=== PATIENT | male | born 1950 | race Caucasian/White ===

== ENCOUNTER 2017-10-10 21:18 | Observation (INO) | payer MEDICARE ==
--- NOTE | 2017-10-10 22:26 | ED ---
General Adult HPI - General Chief complaint: Urogenital Stated complaint: Blood in Urine Time Seen by Provider: 10/10/17 21:52 Source: patient Mode of arrival: ambulatory Limitations: no limitations - History of Present Illness Initial comments: Patient is a 67 year old male who presents with a CC of hematuria. this has been going on for 4 days. patient cannot identify any inciting incidences. There are no aggravating or alleviating factors. patient denies pain, though he states that he passed a clot and has been having some frequency and irritation since that time. he denies any previous history of the same, no history of renal stones or flank pain. - Related Data Previous Rx's Medication Instructions Recorded Cetirizine HCl [Zyrtec] 10 mg PO DAILY #20 tab 01/18/14 EPINEPHrine (Auto Inject) [Epipen] 0.3 mg IM ONCE PRN #1 syringe 01/18/14 Famotidine [Pepcid] 20 mg PO BID #30 tablet 01/18/14 predniSONE 50 mg PO DAILY #5 tab 01/18/14 Allergies Allergy/AdvReac Type Severity Reaction Status Date / Time hydrocodone bitartrate Allergy Rash/Hives Verified 10/10/17 21:42 [From [place]] venom-honey bee Allergy Rash/Hives Verified 10/10/17 21:42 [bee venom (honey bee)] Review of Systems ROS Statement: Those systems with pertinent positive or pertinent negative responses have been documented in the HPI. ROS Other: All systems not noted in ROS Statement are negative. Genitourinary: Reports: hematuria Past Medical History Past Medical History: No Reported History History of Any Multi-Drug Resistant Organisms: None Reported Past Surgical History: Joint Replacement Additional Past Surgical History / Comment(s): Right knee, TRIPPLE BIPASS. Past Psychological History: No Psychological Hx Reported Smoking Status: Never smoker Past Alcohol Use History: Occasional Past Drug Use History: None Reported General Exam Limitations: no limitations General appearance: alert, in no apparent distress Head exam: Present: atraumatic, normocephalic Eye exam: Present: normal appearance ENT exam: Present: normal exam, mucous membranes moist Neck exam: Present: normal inspection Respiratory exam: Present: normal lung sounds bilaterally. Absent: respiratory distress, wheezes Cardiovascular Exam: Present: regular rate, normal rhythm GI/Abdominal exam: Present: soft. Absent: distended, tenderness Rectal exam: Present: deferred Extremities exam: Present: normal inspection Back exam: Present: normal inspection. Absent: CVA tenderness (R), CVA tenderness (L) Neurological exam: Present: alert, oriented X3, normal gait Psychiatric exam: Present: normal affect, normal mood Skin exam: Present: warm, dry, intact Course Vital Signs 10/10/17 10/10/17 21:39 22:39 Temperature 99.1 F 98.9 F Pulse Rate 80 71 Respiratory 16 18 Rate Blood Pressure 129/73 138/79 O2 Sat by Pulse 96 94 L Oximetry Medical Decision Making - Medical Decision Making patient presents with a CC of hematuria. on initial evaluation, patient in no acute distress, vital signs are stable. patient will be evaluated with basic labs, urinalysis, and US of the kidneys and bladder. 12:11 AM Lab evaluation of this patient shows leukocytosis of 32,000, and mildly decreased platelets. Labs are otherwise unremarkable. Ultrasound of the kidneys and bladder showed normal anatomy of the kidneys, there is some dependent debris in the bladder likely consistent with blood or clots. There is a mass in the posterior wall of the bladder is perhaps consistent with a neoplasm given patient's presentation. I discussed these results with the patient. The patient disclosed to me that he has CLL which would account for the patient's leukocytosis, however given the findings of the bladder and the suspicion for neoplasm, the patient will be sent for computed tomography scan of the abdomen and pelvis with contrast and admitted for expedited consult to urology. Care plan was discussed with the patient and his , they are agreeable. - Lab Data Result diagrams: 10/10/17 22:35 10/10/17 22:35 Lab Results 10/10/17 10/10/17 10/10/17 Range/Units 22:00 22:35 22:35 WBC 32.8 H* (3.8-10.6) k/uL RBC 4.69 (4.30-5.90) m/uL Hgb 14.3 (13.0-17.5) gm/dL Hct 42.0 (39.0-53.0) % MCV 89.6 (80.0-100.0) fL MCH 30.4 (25.0-35.0) pg MCHC 34.0 (31.0-37.0) g/dL RDW 13.6 (11.5-15.5) % Plt Count 131 L (150-450) k/uL Neutrophils % (Manual) 9 % Lymphocytes % (Manual) 91 % Neutrophils # (Manual) 2.95 (1.3-7.7) k/uL Lymphocytes # (Manual) 29.85 H (1.0-4.8) k/uL Nucleated RBCs 0 (0-0) /100 WBC Differential Comment Manual Slide Review Performed Sodium 143 (137-145) mmol/L Potassium 4.0 (3.5-5.1) mmol/L Chloride 107 (98-107) mmol/L Carbon Dioxide 22 (22-30) mmol/L Anion Gap 14 mmol/L BUN 23 H (9-20) mg/dL Creatinine 0.90 (0.66-1.25) mg/dL Est GFR (CKD-EPI)AfAm >90 (>60 ml/min/1.73 sqM) Est GFR (CKD-EPI)NonAf 87 (>60 ml/min/1.73 sqM) Glucose 103 H (74-99) mg/dL Calcium 9.8 (8.4-10.2) mg/dL Urine Color Red Urine Appearance Cloudy (Clear) Urine pH 5.5 (5.0-8.0) Ur Specific [place] 1.011 (1.001-1.035) Urine Protein 1+ H (Negative) Urine Glucose (UA) Negative (Negative) Urine Ketones Negative (Negative) Urine Blood Large H (Negative) Urine Nitrite Negative (Negative) Urine Bilirubin Negative (Negative) Urine Urobilinogen <2.0 (<2.0) mg/dL Ur Leukocyte Esterase Small H (Negative) Urine RBC >182 H (0-5) /hpf Urine WBC 33 H (0-5) /hpf Ur Squamous Epith Cells 1 (0-4) /hpf Urine Mucus Rare H (None) /hpf Disposition Clinical Impression: Painless hematuria, Bladder mass, CLL (chronic lymphocytic leukemia), Lymphocytosis Disposition: ADMITTED IP TO THIS [facility] Condition: Good Is patient prescribed a controlled substance at d/c from ED?: No Referrals: Nonstaff,Physician [Primary Care Provider] - 1-2 days Decision to Admit Reason: Admit from EC - Out of Hospital Transfer - Req. Specs Out of Hospital Transfer - Requested Specifics: Other Non-Acute
[2017-10-10 22:37] LABS: Appearance,Urine Cloudy (Clear); Bilirubin,Urine Negative (Negative); Blood,Urine Large (Negative); Color,Urine Red; Glucose,Urine (UA) Negative (Negative); Ketones,Urine Negative (Negative); Leukocyte Esterase,Urine Small (Negative); Mucus,Urine Rare /hpf; Nitrite,Urine Negative (Negative); PH, Urine 5.5 (5.0-8.0); Protein,Urine 1+ (Negative); RBC,Urine >182 /hpf (0-5); Specific Gravity,Urine 1.011 (1.001-1.035); Squamous Epithelial Cell,Urine 1 /hpf (0-4); Urobilinogen,Urine <2.0 mg/dL (<2.0); WBC,Urine 33 /hpf (0-5)
[2017-10-10 22:53] LABS: HGB 14.3 gm/dL (13.0-17.5); MCH 30.4 pg (25.0-35.0); MCV 89.6 fL (80.0-100.0); Mean Platelet Volume 7.5; Platelet Count 131 k/uL (150-450); RBC 4.69 m/uL (4.30-5.90); RDW 13.6 % (11.5-15.5)
[2017-10-10 23:01] LABS: Anion Gap 14 mmol/L; Blood Urea Nitrogen 23 mg/dL (9-20); Calcium 9.8 mg/dL (8.4-10.2); Carbon Dioxide 22 mmol/L (22-30); Chloride 107 mmol/L (98-107); Glucose 103 mg/dL (74-99); Sodium 143 mmol/L (137-145); WBC 32.8 k/uL (3.8-10.6)
--- NOTE | 2017-10-10 23:23 | US ---
EXAMINATION TYPE: US kidneys/renal and bladder DATE OF EXAM: 10/10/2017 COMPARISON: NONE CLINICAL HISTORY: Pain. Gross hematuria for 4 days EXAM MEASUREMENTS: Right Kidney: 11.3 x 4.9 x 5.0 cm Left Kidney: 11.4 x 6.2 x 5.4 cm Right Kidney: no evidence of hydronephrosis Left Kidney: no evidence of hydronephrosis Bladder: possible septation noted and hyperechoic area posterior wall = 1.4 x 0.9 x 1.0cm Bilateral Jets seen: yes There is no evidence for hydronephrosis at this point in time. No nephrolithiasis is seen. No dasha s are identified. The urinary bladder is anechoic. Bilateral ureteral jets are seen. IMPRESSION: The kidneys appear normal. There is an oval-shaped echogenic area that measures 14 x 9 mm in the depe ndent urinary bladder that is probably a blood clot or debris. No evidence of renal mass or obstructi on. There is linear density along the posterior urinary bladder near the posterior wall that has appearan ce of septa and could relate to neoplastic process or blood clot.
[2017-10-10 23:47] LABS: Lymphocytes # (M) 29.85 k/uL (1.0-4.8); Neutrophils # (M) 2.95 k/uL (1.3-7.7); Neutrophils % (M) 9 %; Nucleated Red Blood Cells 0 /100 WBC (0-0); Total Cells Counted 100
[2017-10-10] MEDS ORDERED: RX INFO: IV CONTRAST WAS GIVEN 1 EACH MISC MISCELLANE PRN (23:47)
[2017-10-11] MEDS ORDERED: NALOXONE 0.4 MG/ML 1 ML VIAL IV PRN (00:07)
--- NOTE | 2017-10-11 00:44 | CT ---
EXAMINATION TYPE: CT abdomen pelvis w con DATE OF EXAM: 10/11/2017 COMPARISON: NONE HISTORY: Patient presents with hematuria. CT DLP: 1550.6 mGycm Automated exposure control for dose reduction was used. TECHNIQUE: Helical acquisition of images was performed from the lung bases through the pelvis. CONTRAST: Performed without Oral Contrast and with IV Contrast, patient injected with mL of Isovue 300. FINDINGS: Lung bases are clear. There is no pleural effusion. Heart size is normal. Liver appears normal. Bile ducts are not dilated. Gallbladder appears normal. There is no pancreatic mass. Spleen is enlarged and measures 15.5 cm. There is no adrenal mass. Kidneys show satisfactory contrast opacification. There is no hydronephrosi s. There is no retroperitoneal adenopathy. Ureters are not dilated. Abdominal aorta is atheromatous. There are multiple prosthetic calcifications. Bladder distends smoothly. 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 There is no evidence of a hernia. I see no intestinal wall thickening. There are are no dilated loops. The appendix is somewhat dilated and measures up to 11 mm with fluid in the mid and distal appendix. IMPRESSION: THICKENED FLUID-FILLED MID AND DISTAL APPENDIX IS SUGGESTIVE OF APPENDICITIS. MILD ATHEROSCLEROTIC VASCULAR DISEASE. SPLENOMEGALY.
[2017-10-11] MEDS ORDERED: cefTRIAXone IN SWFI 1,000 MG/10 ML SYRINGE IVP STA (00:55)
[2017-10-11 01:16] VITALS: RESP 16
[2017-10-11 01:17] VITALS: BMI 30.4
[2017-10-11 06:31] VITALS: BP 102/66; PULSE 76; TEMP 97.7
--- NOTE | 2017-10-11 18:20 | P.DS ---
Providers Date of admission: 10/11/17 00:07 Attending physician: Arvind Glaser MD Consults: 10/11/17 00:09 Consult Physician Urgent Consulting Provider: Isaias Broderick Consult Reason/Comments: painless hematuria, bladder mass Do you want consulting provider notified?: Yes Primary care physician: Physician Nonstaff Hospital Course: As mentioned in HPI Patient Condition at Discharge: Good Plan - Discharge Summary Discharge Rx Participant: Yes New Discharge Prescriptions: No Action EPINEPHrine (Auto Inject) [Epipen] 0.3 mg IM ONCE PRN #1 syringe PRN Reason: Anaphylaxis Atorvastatin [Lipitor] 40 mg PO HS Aspirin [place] [Ecotrin Low Dose] 81 mg PO DAILY Magnesium 200 mg PO DAILY Cholecalciferol [Vitamin D3] 1,000 unit PO DAILY [place]-3 Fatty Acids/Fish Oil [Fish Oil 1,000 mg Softgel] 1 cap PO DAILY Discharge Medication List EPINEPHrine (Auto Inject) [Epipen] 0.3 mg IM ONCE PRN #1 syringe 01/18/14 [Rx] Aspirin [place] [Ecotrin Low Dose] 81 mg PO DAILY 10/11/17 [History] Atorvastatin [Lipitor] 40 mg PO HS 10/11/17 [History] Cholecalciferol [Vitamin D3] 1,000 unit PO DAILY 10/11/17 [History] Magnesium 200 mg PO DAILY 10/11/17 [History] [place]-3 Fatty Acids/Fish Oil [Fish Oil 1,000 mg Softgel] 1 cap PO DAILY [History] Follow up Appointment(s)/Referral(s): Isaias Broderick MD [STAFF PHYSICIAN] - 10/13/17 10:40 am () Nonstaff,Physician [Primary Care Provider] - 3 Days Patient Instructions/Handouts: Hematuria (GEN), Leukocytosis (DC) Discharge Disposition: HOME SELF-CARE
--- NOTE | 2017-10-11 18:20 | P.HPIM ---
History of Present Illness 67-year-old male came in with complaints of hematuria which completely resolved at this point of time and the patient has his hematuria going on for about 4 days. Patient has painless hematuria CAT scan of the abdomen did not show any significant abnormality but ultrasound of the urinary bladder did show some blood clots in the urinary bladder. Patient denied any fever chills denied any dysuria. Patient does have significant RBC and some WBC in the urine. Patient does not have signs of sepsis. Patient does have leukocytosis secondary to his chronic lymphocytic leukemia without any bandemia on the peripheral smear. We' re making an appointment in the urology clinic and patient will be discharged today. Review of Systems REVIEW OF SYSTEMS: CONSTITUTIONAL: No fever, no malaise, no fatigue. HEENT: No recent visual problems or hearing problems. Denied any sore throat. CARDIOVASCULAR: No chest pain, orthopnea, PND, no palpitations, no syncope. PULMONARY: No shortness of breath, no cough, no hemoptysis. GASTROINTESTINAL: No diarrhea, no nausea, no vomiting, no abdominal pain. Normoactive bowel sounds. NEUROLOGICAL: No headaches, no weakness, no numbness. HEMATOLOGICAL: Denies any bleeding or petechiae. GENITOURINARY: Denies any burning micturition, frequency, or urgency. MUSCULOSKELETAL/RHEUMATOLOGICAL: Denies any joint pain, swelling, or any muscle pain. ENDOCRINE: Denies any polyuria or polydipsia. The rest of the 14-point review of systems is negative. Past Medical History Past Medical History: No Reported History Additional Past Medical History / Comment(s): Chronic lymphotic leukemia 2011 History of Any Multi-Drug Resistant Organisms: None Reported Past Surgical History: Hernia Repair, Joint Replacement Additional Past Surgical History / Comment(s): Right knee, TRIPPLE BIPASS 2016, Past Anesthesia/Blood Transfusion Reactions: No Reported Reaction Past Psychological History: No Psychological Hx Reported Smoking Status: Former smoker Past Alcohol Use History: Occasional Past Drug Use History: None Reported - Past Family History Father Family Medical History: Cancer Additional Family Medical History / Comment(s): bladder cancer Mother Family Medical History: No Reported History Medications and Allergies Home Medications Medication Instructions Recorded Confirmed Type EPINEPHrine (Auto Inject) [Epipen] 0.3 mg IM ONCE PRN #1 syringe 01/18/14 Rx Aspirin [place] [Ecotrin Low Dose] 81 mg PO DAILY 10/11/17 10/11/17 History Atorvastatin [Lipitor] 40 mg PO HS 10/11/17 10/11/17 History Cholecalciferol [Vitamin D3] 1,000 unit PO DAILY 10/11/17 10/11/17 History Magnesium 200 mg PO DAILY 10/11/17 10/11/17 History [place]-3 Fatty Acids/Fish Oil [Fish 1 cap PO DAILY 10/11/17 10/11/17 History Oil 1,000 mg Softgel] Allergies Allergy/AdvReac Type Severity Reaction Status Date / Time hydrocodone bitartrate Allergy Rash/Hives Verified 10/11/17 08:12 [From [place]] venom-honey bee Allergy Rash/Hives Verified 10/11/17 08:12 [bee venom (honey bee)] Physical Exam Vitals: Vital Signs Temp Pulse Pulse Resp BP BP Pulse Ox 10/11/17 08:00 16 10/11/17 05:45 97.7 F 76 16 102/66 96 10/11/17 01:05 97.8 F 78 16 142/89 94 L 10/11/17 00:57 98.6 F 71 18 153/77 98 10/10/17 22:39 98.9 F 71 18 138/79 94 L 10/10/17 21:39 99.1 F 80 16 129/73 96 Intake and Output 10/11/17 10/11/17 10/11/17 06:59 14:59 22:59 Intake Total 320 Output Total 400 500 Balance -400 -180 Intake: Oral 320 Output: Urine 400 500 Other: Voiding Method Toilet Urinal # Voids 1 2 Weight 107.5 kg PHYSICAL EXAMINATION: GENERAL: The patient is alert and oriented x3, not in any acute distress. Well developed, well nourished. HEENT: Pupils are round and equally reacting to light. EOMI. No scleral icterus. No conjunctival pallor. Normocephalic, atraumatic. No pharyngeal erythema. No thyromegaly. CARDIOVASCULAR: S1 and S2 present. No murmurs, rubs, or gallops. PULMONARY: Chest is clear to auscultation, no wheezing or crackles. ABDOMEN: Soft, nontender, nondistended, normoactive bowel sounds. No palpable organomegaly. MUSCULOSKELETAL: No joint swelling or deformity. EXTREMITIES: No cyanosis, clubbing, or pedal edema. NEUROLOGICAL: Gross neurological examination did not reveal any focal deficits. SKIN: No rashes. Results CBC & Chem 7: 10/10/17 22:35 10/10/17 22:35 Labs: Abnormal Lab Results - Last 24 Hours (Table) 10/10/17 10/10/17 10/10/17 Range/Units 22:00 22:35 22:35 WBC 32.8 H* (3.8-10.6) k/uL Plt Count 131 L (150-450) k/uL Lymphocytes # (Manual) 29.85 H (1.0-4.8) k/uL BUN 23 H (9-20) mg/dL Glucose 103 H (74-99) mg/dL Urine Protein 1+ H (Negative) Urine Blood Large H (Negative) Ur Leukocyte Esterase Small H (Negative) Urine RBC >182 H (0-5) /hpf Urine WBC 33 H (0-5) /hpf Urine Mucus Rare H (None) /hpf Microbiology - Last 24 Hours (Table) 10/10/17 22:00 Urine Culture - Preliminary Urine,Voided Thrombosis Risk Factor Assmnt - Choose All That Apply Any of the Below Risk Factors Present?: Yes Each Factor Represents 1 point: Obesity (BMI >25) Other Risk Factors: Yes Each Risk Factor Represents 2 Points: Age 61-74 years, Malignancy Other congenital or acquired thrombophilia - If yes, enter type in comment: No Thrombosis Risk Factor Assessment Total Risk Factor Score: 5 Thrombosis Risk Factor Assessment Level: High Risk Assessment and Plan Plan: -Hematuria, painless: Patient may need a cystoscopy patient hematuria resolved referred to urology as an outpatient to see a urologist today. -History of CLL with highly elevated white blood cell count, lymphocytic predominance there is no evidence of bandemia are acute leukemia at this time. Patient was asked to follow-up with his oncologist in [place] and make him aware of his hospitalization for hematuria Patient will be discharged today in stable medical condition to home. Follow- up with urology as mentioned above.
== END 2017-10-11 13:50 | disposition home or self-care (01) ==
LOC: EC 21:18 → 4MS4W 10-11 00:07
PROVIDERS: ADMIT Internal Medicine; ATTEND Internal Medicine
DX: R31.0 Gross hematuria (principal); C91.10 Chronic lymphocytic leukemia of B-cell type not having achieved remission; N32.9 Bladder disorder, unspecified; N32.89 Other specified disorders of bladder; Z95.1 Presence of aortocoronary bypass graft; Z87.891 Personal history of nicotine dependence; Z80.52 Family history of malignant neoplasm of bladder; Z79.899 Other long term (current) drug therapy; Z79.82 Long term (current) use of aspirin; Z88.5 Allergy status to narcotic agent; Z91.030 Bee allergy status; E66.9 Obesity, unspecified; Z68.30 Body mass index [BMI] 30.0-30.9, adult
CPT/HCPCS: 36415; 74177; 76770; 80048; 81001; 85025; 87086; 96374; 99285